=== PATIENT | female | born 1985 | race Caucasian/White ===

== ENCOUNTER 2023-12-09 14:08 | Emergency (ER) | payer MEDICAID, OTHER ==
--- NOTE | 2023-12-09 14:28 | ED Physician Documentation ---
PD HPI ABD PAIN - Stated complaint Stated Complaint: ABD PX - Chief complaint Chief Complaint: Abd Pain - Additional information Additional information: 38-year-old female reports that she has a history of Crohn's disease presents emergency department for acute onset abdominal pain. Patient says that she is here visiting from out of town and normally receives her care in [place] or [facility]. She says that she did not get new prescription of pain medication prior to coming on vacation and is now having an acute flare of her Crohn's disease. She says that she had a couple episodes of diarrhea couple days ago but nothing since then. Mild nausea no vomiting no fevers or chills PD PAST MEDICAL HISTORY - Past Medical History Past Medical History: Yes Neuro: Migraines GI: Crohn's disease - Past Surgical History Past Surgical History: No General: Appendectomy, Other /[employer]: Hysterectomy - Allergies Allergies/Adverse Reactions: Allergies Allergy/AdvReac Type Severity Reaction Status Date / Time Penicillins Allergy Hives Verified 12/09/23 14:15 NSAIDS (Non-Steroidal AdvReac Unknown Verified 12/09/23 14:15 Anti-Inflamma prednisone AdvReac Hallucinati Verified 12/09/23 14:15 ons - Social History Does the pt smoke?: No Smoking Status: Current some day smoker Does the pt drink ETOH?: No Does the pt have substance abuse?: No - Immunizations Immunizations are current?: Yes PD ED PE NORMAL - Vitals Vital signs reviewed: Yes - General General: Alert and oriented X 3, Well developed/nourished, Other (Tearful and crying) - Cardiac Cardiac: RRR - Respiratory Respiratory: No respiratory distress - Abdomen Abdomen: Normal bowel sounds, Soft, Non distended, No organomegaly, Other (Generalized abdominal tenderness no pinpoint tenderness no rebound tenderness) - Back Back: No CVA TTP - Derm Derm: Normal color, Warm and dry, No rash Results - Vitals Vitals: Vital Signs - 24 hr 12/09/23 12/09/23 12/09/23 14:15 14:32 16:20 Temperature 36.8 C Heart Rate 73 69 66 Respiratory 26 H 16 Rate Blood Pressure 125/91 H 118/57 L 99/71 O2 Saturation 99 100 98 12/09/23 17:29 Temperature 36.8 C Heart Rate 66 Respiratory 16 Rate Blood Pressure 99/71 O2 Saturation 98 Oxygen O2 Source Room air - Labs Labs: Laboratory Tests 12/09/23 12/09/23 12/09/23 14:59 14:59 16:00 WBC 11.2 H RBC 4.43 Hgb 11.6 L Hct 37.6 MCV 84.9 MCH 26.2 L MCHC 30.9 L RDW 14.9 Plt Count 277 MPV 10.1 Neut # (Auto) 6.9 H Lymph # (Auto) 3.3 [place] # (Auto) 0.6 Eos # (Auto) 0.3 Baso # (Auto) 0.0 Absolute Nucleated RBC 0.00 Nucleated RBC % 0.0 Sodium 138 Potassium 3.8 Chloride 107 Carbon Dioxide 24 Anion Gap 7.0 BUN 13 Creatinine 0.8 Estimated GFR (MDRD) 81 L Glucose 89 Calcium 9.2 Total Bilirubin 0.4 AST 13 ALT 14 Alkaline Phosphatase 58 Total Protein 6.7 Albumin 4.0 Globulin 2.7 Albumin/Globulin Ratio 1.5 Lipase 10 L Urine Color YELLOW Urine Clarity CLEAR Urine pH 7.0 Ur Specific [place] 1.020 Urine Protein NEGATIVE Urine Glucose (UA) NEGATIVE Urine Ketones NEGATIVE Urine Occult Blood NEGATIVE Urine Nitrite NEGATIVE Urine Bilirubin NEGATIVE Urine Urobilinogen 0.2 (NORMAL) Ur Leukocyte Esterase NEGATIVE Ur Microscopic Review NOT INDICATED Urine Culture Comments NOT INDICATED Urine HCG, Qual 12/09/23 16:00 WBC RBC Hgb Hct MCV MCH MCHC RDW Plt Count MPV Neut # (Auto) Lymph # (Auto) [place] # (Auto) Eos # (Auto) Baso # (Auto) Absolute Nucleated RBC Nucleated RBC % Sodium Potassium Chloride Carbon Dioxide Anion Gap BUN Creatinine Estimated GFR (MDRD) Glucose Calcium Total Bilirubin AST ALT Alkaline Phosphatase Total Protein Albumin Globulin Albumin/Globulin Ratio Lipase Urine Color Urine Clarity Urine pH Ur Specific [place] Urine Protein Urine Glucose (UA) Urine Ketones Urine Occult Blood Urine Nitrite Urine Bilirubin Urine Urobilinogen Ur Leukocyte Esterase Ur Microscopic Review Urine Culture Comments Urine HCG, Qual NEGATIVE - Rads (name of study) CT abdomen Relevant Findings:: Final report received, EMP independent interpretation of test, Other (No hydronephrosis or obstructing kidney stone, moderate to large stool burden no bowel obstruction) PD Medical Decision Making - ED course ED course: 38-year-old female presents emergency department for concerns of Crohn's flare. Patient says that at times she gets prescribed steroids but avoids this at all costs because she has had history of steroid-induced psychosis and has an assault charge currently pending on her for this per patient. Her main concern is pain medication she says that she normally gets pain medicine prescribed to her but unfortunately has not gotten any hydrocodone refilled prior to her vacation. CT was complete upper abdomen for further evaluation and possible emergent abdominal findings and patient was found to have ongoing constipation. We did get patient's last ER note from [facility] and she appeared to have constipation at that point in time as well. She has not taken any MiraLAX and said that she took a one-time Fleet enema and had diarrhea but has not taken anything such as stool softener MiraLAX since then. The patient seemed to be quite emotional at times easily agitated with staff and does appear to have some poor coping skills. She received a liter of IV fluids through her port and also about some IV Zofran and 2 doses of IV Dilaudid with a total of 0.75 mg of Dilaudid while here in the emergency department. Symptoms were alleviated she said that she would do a Fleet enema upon discharge I informed her that unfortunately prescribing narcotics is going to make her constipation worse she was tearful and upset at this but understands that she will work on constipation issues and other coping mechanisms to help with the pain while she starts to have bowel movements. ER return precautions given all questions answered patient is safe for discharge at this time. Departure - Departure Disposition: 01 Home, Self Care Clinical Impression: Constipation Instructions: Abdominal Pain, ED Constipation Comments: You appear to have a large stool burden which is what is causing the abdominal cramping and pain. And make sure that you are drinking plenty of fluids consider a Fleet enema at home as well as taking MiraLAX daily for the next 2 weeks to make sure that you are getting more consistent regular bowel movements. Please follow-up with your primary care provider and your GI doctor upon return to home and present to the nearest emergency department if you are starting develop any fevers chills nausea or vomiting. Forms: PCP List Discharge Date/Time: 12/09/23 17:31
[2023-12-09 15:05] LABS: BASOPHILS % (AUTO) 0.4 %; EOSINOPHILS # (AUTO) 0.3 10^3/uL (0.0-0.7); HCT - HEMATOCRIT 37.6 % (37.0-47.0); HGB - HEMOGLOBIN 11.6 g/dL (12.0-16.0); LYMPHOCYTES # (AUTO) 3.3 10^3/uL (1.5-3.5); LYMPHOCYTES % (AUTO) 29.1 %; MEAN CORPUSCULAR HEMOGLOBIN 26.2 pg (27.0-31.0); MEAN CORPUSCULAR HGB CONC 30.9 g/dL (32.0-36.0); MEAN CORPUSCULAR VOLUME 84.9 fL (81.0-99.0); MEAN PLATELET VOLUME 10.1 fL (7.9-10.8); MONOCYTES # (AUTO) 0.6 10^3/uL (0.0-1.0); MONOCYTES % (AUTO) 5.5 %; NEUTROPHILS # (AUTO) 6.9 10^3/uL (1.5-6.6); NEUTROPHILS % (AUTO) 61.7 %; PLT - PLATELET COUNT 277 10^3/uL (130-450); RED BLOOD COUNT 4.43 10^6/uL (4.20-5.40); RED CELL DISTRIBUTION WIDTH 14.9 % (12.0-15.0); WHITE BLOOD COUNT 11.2 x10^3/uL (4.8-10.8)
[2023-12-09] MEDS: ONDANSETRON 4 MG/2 ML VIAL IVP STA (15:14)
[2023-12-09] MEDS: HYDROmorphone 0.5 MG/0.5 ML SYRINGE IVP STA ×2 (15:17→17:06)
[2023-12-09 15:18] LABS: ALBUMIN/GLOBULIN RATIO 1.5 (1.0-2.2); BILIRUBIN,TOTAL 0.4 mg/dL (0.2-1.0); CALCIUM 9.2 mg/dL (8.5-10.3); CREATININE 0.8 mg/dL (0.6-1.3); POTASSIUM 3.8 mmol/L (3.5-4.5); TOTAL PROTEIN 6.7 g/dL (6.4-8.9)
[2023-12-09] MEDS: ACETAMINOPHEN 500 MG TABLET PO STA (15:18)
[2023-12-09 16:12] LABS: BILIRUBIN,URINE NEGATIVE (NEGATIVE); CLARITY,URINE CLEAR (CLEAR); GLUCOSE, URINE (UA) NEGATIVE (NEGATIVE); KETONES,URINE (UA) NEGATIVE (NEGATIVE); LEUKOCYTE ESTERASE, URINE NEGATIVE (NEGATIVE); NITRITE,URINE NEGATIVE (NEGATIVE); OCCULT BLOOD,URINE NEGATIVE (NEGATIVE); PROTEIN,URINE NEGATIVE (NEGATIVE); UROBILINOGEN,URINE 0.2 (NORMAL) E.U./dL (NORMAL)
[2023-12-09 16:13] LABS: HCG UR QUAL NEGATIVE
--- NOTE | 2023-12-09 16:30 | CT Report ---
PROCEDURE: KUB INDICATIONS: Right flank pain TECHNIQUE: A CT scan of the abdomen and pelvis was performed without the use of intravenous contrast. Images we re recorded and evaluated at appropriate window settings. Reformats: coronal and sagittal. For radiat ion dose reduction, the following was used: automated exposure control, adjustment of mA and/or kV ac cording to patient size. COMPARISON: None. FINDINGS: Image quality: Diagnostic. Lower chest: Unremarkable. Liver: No contour-deforming mass. Gallbladder: No radiopaque stones or wall thickening. Biliary tree: No intrahepatic or extrahepatic dilation, accounting for age. Spleen: No splenomegaly. Pancreas: No pancreatic ductal dilation. Adrenals: No adrenal nodule. Kidneys and ureters: No hydronephrosis. No contour-deforming mass. Stomach, bowel and peritoneum: No gastric or small bowel dilation. No abnormal wall thickening. Fluid collections within the pelvis, for example in the left pelvis measuring 5.1 x 5.0 x 7.3 cm. Addition al smaller partially located collection within the right inferior pelvis. Moderate to large burden of stool throughout the colon. Surgical clips at the cecum, likely prior appendectomy. Lymph nodes: No central or retroperitoneal adenopathy. Vessels: No infrarenal aortic aneurysm. Reproductive organs: Unremarkable. Bladder: Decompressed, limiting evaluation. No calcified bladder stones. Pelvic lymph nodes: No adenopathy by size criteria. Bones: No aggressive osseous abnormality. Other: No significant ventral or inguinal hernia. Scar along the lower anterior abdominal wall, likel y from prior surgery. IMPRESSION: 1.No hydronephrosis or obstructing renal stone. 2.Moderate to large stool burden, correlate for constipation. 3.Simple appearing fluid collections within the pelvis as above. Findings may represent lymphocele ve rsus other chronic fluid collection. Correlate with prior pelvic surgery. Reviewed by: Ulisses Chaves MD on 12/09/2023 4:28 PM PDT Approved by: Ulisses Chaves MD on 12/09/2023 4:28 PM PDT Station ID: [id number]
[2023-12-09 17:30] VITALS: BP 99/71; O2SAT 98
== END 2023-12-09 17:31 | disposition home or self-care (01) ==
LOC: ED 14:08
DX: K59.00 Constipation, unspecified (principal); F17.200 Nicotine dependence, unspecified, uncomplicated
CPT/HCPCS: 36415; 74176; 80053; 81003; 81025; 83690; 85025; 96374; 96375; 96376; 99283; 99284; A9270; J1170; 81001; 87086